=== PATIENT | female | born 1960 | race Caucasian/White ===

== ENCOUNTER 2019-04-22 17:52 | Emergency (ER) | payer OTHER, SELFPAY ==
--- NOTE | ~2019-04-22 | XR_ITS ---
[XR ribs LT 2V ] INDICATION: Left rib pain TECHNIQUE: Frontal projection of the upper left ribs, frontal projection of the lower left ribs, obli que projection of all the left ribs, frontal inspiratory chest x-ray for interpretation. FINDINGS: There are no displaced rib fractures identified. There are no soft tissue abnormality see n. The lungs are clear. IMPRESSION: 1:No displaced rib fractures. Reviewed, dictated and finalized at location A.
[2019-04-22 17:55] VITALS: BP 150/81; PULSE 108; RESP 16; TEMP 37.6; O2SAT 96
--- NOTE | 2019-04-22 18:29 | ED.GENADULT ---
HPI - General Adult General Chief complaint: Unspecified Stated complaint: rib pain- pos flu A Time Seen by Provider: 04/22/19 18:08 Source: patient Mode of arrival: ambulatory Limitations: no limitations History of Present Illness HPI narrative: Patient is a 58-year-old female who presents to emergency department for evaluation of left anterior rib pain patient was coughing when she developed the pain which is a sharp stabbing pain in the anterior lateral ribs patient was diagnosed with influenza today sent home on prednisone and returns noting sharp stabbing pain after coughin. Patient notes rhinorrhea congestion fever chills body aches since yesterday g Related Data Allergies Allergy/AdvReac Type Severity Reaction Status Date / Time Sulfa (Sulfonamide AdvReac Mild Verified 02/10/13 18:07 Antibiotics) PROXICAM Allergy Mild Uncoded 05/18/10 19:44 Review of Systems Review of Systems: All systems reviewed & are unremarkable except as noted in HPI and below Exam Narrative: Exam Narrative: GENERAL: Well-appearing, well-nourished, and in no acute distress. HEAD: Normocephalic, atraumatic. EYES: PERRLA and EOMI. ENT: Nares clear, no rhinorrhea or epistaxis. Mucous membranes moist. CHEST: Clear to auscultation. No respiratory distress. No wheezes rales or rhonchi HEART: Regular rate and rhythm. No murmur heard. EXTREMITIES: Normal range of motion. No edema. SKIN: Warm, dry, no rash. NEURO: No focal deficits. Alert and oriented x3. Cranial nerves II through XII grossly intact PSYCH: Normal mood and affect. Course Course Emergency Course: Patient in the room aware of case findings treatment plan and diagnosis agreeing to follow-up as directed or to return if symptoms worsen or concerns Vital Signs Vital signs: Vital Signs Temperature 99.6 F 04/22/19 17:55 Pulse Rate 108 H 04/22/19 17:55 Respiratory Rate 16 04/22/19 17:55 Blood Pressure 150/81 H 04/22/19 17:55 Pulse Oximetry 96 04/22/19 17:55 Temperature 99.6 F 04/22/19 17:55 Pulse Rate 108 H 04/22/19 17:55 Respiratory Rate 16 04/22/19 17:55 Blood Pressure 150/81 H 04/22/19 17:55 Pulse Oximetry 96 04/22/19 17:55 Medical Decision Making MDM Narrative Medical decision making narrative: Patient in the room aware of case findings treatment plan and diagnosis agreeing to follow-up as directed or to return if symptoms worsen or concerns Vital Signs Vital Signs: Vital Signs Temperature 99.6 F 04/22/19 17:55 Pulse Rate 108 H 04/22/19 17:55 Respiratory Rate 16 04/22/19 17:55 Blood Pressure 150/81 H 04/22/19 17:55 Pulse Oximetry 96 04/22/19 17:55 Temperature 99.6 F 04/22/19 17:55 Pulse Rate 108 H 04/22/19 17:55 Respiratory Rate 16 04/22/19 17:55 Blood Pressure 150/81 H 04/22/19 17:55 Pulse Oximetry 96 04/22/19 17:55 Imaging Data Radiologist's impression: ITS Impressions Ribs X-Ray 04/22/19 18:16 IMPRESSION: 1:No displaced rib fractures. Discharge Plan Discharge Clinical Impression: Strain of chest wall, Influenza Patient Disposition: Home, Self-Care Condition: Stable Instructions: Antibiotic Form, Influenza (ED) Additional Instructions: Follow up with your primary care provider within 5-7 days. Go to ER for shortness of breath, difficulty breathing, chest pain, fever/chills, weakness, nauseau/vomitting, etc. or any other concerns. Stay well-hydrated Take any prescribed medications as directed. Follow patient education sheets If you do not have a drug allergy to tylenol or motrin and can tolerate it then take tylenol or motrin as needed for discomfort/pain. Prescriptions: New oseltamivir [Tamiflu] 75 mg capsule 75 mg PO Q12H 5 Days Qty: 10 RF: 0 montelukast [Singulair] 10 mg tablet 10 mg PO DAILY Qty: 10 RF: 0 ibuprofen [IBU] 600 mg tablet 600 mg PO QID PRN (Reason: fever or pain) Qty: 7 RF: 0 Follow-up/Referrals: Mary,Penny
[2019-04-22] MEDS: KETOROLAC (*BKC) 60 MG/2 ML VIAL 30 MG IM (18:37)
== END 2019-04-22 18:52 | disposition home or self-care (01) ==
PROVIDERS: Emergency Provider Emergency Medicine; PCP Internal Medicine
DX: S29.011A Strain of muscle and tendon of front wall of thorax, initial encounter (principal); J11.1 Influenza due to unidentified influenza virus with other respiratory manifestations; X50.9XXA Other and unspecified overexertion or strenuous movements or postures, initial encounter
CPT/HCPCS: 71100; 96372; 99283; A9270; J1885

== ENCOUNTER 2020-02-16 02:49 | Emergency (ER) | payer OTHER, SELFPAY ==
--- NOTE | ~2020-02-16 | XR_ITS ---
EXAMINATION: XR chest 2V 02/16/2020 03:29 INDICATION: Cough PROCEDURE: PA and lateral views of the chest COMPARISON: No prior studies for comparison. FINDINGS: The lungs are clear. The cardiomediastinal silhouette is within normal limits. There are no pleural effusions. There is no pneumothorax suspected. IMPRESSION: 1: NO ACUTE CARDIOPULMONARY DISEASE. Reviewed, dictated and finalized at location A. [employer] DIRECT[employer]
[2020-02-16 03:00] VITALS: BP 169/80; PULSE 99; RESP 18; TEMP 36.6; O2SAT 98
--- NOTE | 2020-02-16 03:12 | ED.URI ---
HPI - URI/Sore Throat General Chief Complaint: Upper Respiratory Infection Stated Complaint: cough, vomiting, sore throat, sinus drainage Time Seen by Provider: 02/16/20 03:12 Source: patient Mode of arrival: ambulatory Limitations: no limitations History of Present Illness HPI Narrative: Patient 59-year-old female complaining of cough, productive of clear yellowish sputum, nasal congestion, nausea, vomiting and sore throat that started 2 days ago. Patient denies any chest pain, shortness of breath, diarrhea, fever or chills. Related Data Allergies Allergy/AdvReac Type Severity Reaction Status Date / Time Sulfa (Sulfonamide AdvReac Mild Verified 02/10/13 18:07 Antibiotics) PROXICAM Allergy Mild Uncoded 05/18/10 19:44 Review of Systems Review of Systems: All systems reviewed & are unremarkable except as noted in HPI and below Constitutional: Constitutional: Denies body ache(s), Denies chills, Denies excessive sweating, Denies fatigue, Denies fever(s), Denies headache(s), Denies lethargy, Denies malaise, Denies weakness and Denies weight loss Eyes: Eyes: Denies blurry vision, Denies change in vision and Denies loss of vision ENT: Denies dizziness, Denies ear discharge, Denies headache(s), Denies lip swelling, Denies epistaxis, Denies neck pain, Denies throat swelling and Denies tongue swelling Cardiovascular: Cardiovascular: Denies chest pain, Denies chest pain at rest, Denies chest pain with activity, Denies diaphoresis, Denies rapid heart rate, Denies edema, Denies irregular heart rhythm, Denies lightheadedness, Denies palpitations, Denies dyspnea and Denies dyspnea on exertion Respiratory: Respiratory: Denies chest congestion, Denies hemoptysis, Denies dyspnea and Denies dyspnea on exertion Gastrointestinal: Gastrointestinal: Denies abdominal pain, Denies melena, Denies hematochezia, Denies diarrhea, Denies nausea, Denies vomiting and Denies hematemesis Musculoskeletal: Musculoskeletal: Denies abnormal gait, Denies deformity, Denies joint swelling, Denies limited range of motion, Denies neck pain and Denies numbness Neurologic: Denies Abnormal speech present, Denies abnormal gait, Denies confusion, Denies dizziness, Denies headache(s), Denies focal weakness, Denies loss of vision, Denies numbness, Denies Other visual disturbances, Denies Sensory deficit (Neuro) and Denies weakness Psychiatric: Psychiatric: Denies confusion, Denies depression, Denies auditory hallucinations, Denies homicidal ideation and Denies suicidal ideation Endocrine: Endocrine: Denies cold intolerance, Denies excessive sweating, Denies fatigue, Denies heat intolerance and Denies palpitations Hematologic/Lymphatic: Hematologic/Lymphatic: Denies easy bleeding and Denies easy bruising Allergic/Immunologic: Allergic/Immunologic: Denies lip swelling, Denies throat swelling and Denies tongue swelling [facility] Social History Social History Gender identity (if verbalized by the patient): Female Exam Const: General: cooperative, healthy appearing, comfortable, no acute distress, well developed, alert and awake; No confusion Orientation/consciousness: oriented to person, oriented to place, oriented to time, patient oriented x3 and No confusion Limitations: no limitations HENMT: Head: normal to inspection, normocephalic and atraumatic Ears: hearing grossly normal bilaterally, TM normal on the right and TM normal on the left General nose exam: Normal external nose present, Normal nares present and No nasal discharge present Face and sinus: normal facial exam Mouth: Yes Normal oral and palatal mucosa present, Yes lip normal, Yes tongue normal and Yes oropharynx normal Throat: posterior oropharynx normal, tonsils normal and uvula midline Eyes: General: appearance normal, both eyes and all related structures Pupils: Equal, round and reactive pupils present EOM: EOMs intact bilaterally Neck: Neck: new
[2020-02-16 04:00] VITALS: BP 146/95; PULSE 94; RESP 20; TEMP 36.6; O2SAT 97
== END 2020-02-16 04:01 | disposition home or self-care (01) ==
PROVIDERS: Emergency Provider Emergency Medicine
DX: J06.9 Acute upper respiratory infection, unspecified (principal)
CPT/HCPCS: 71046; 99283

== ENCOUNTER 2023-11-26 07:05 | Outpatient (CLI) | payer OTHER, SELFPAY ==
--- NOTE | ~2023-11-26 | XR_ITS ---
XR foot LT min 3V Ordering provider: Carito Huertas History: . Infection following a procedure,superficial incisi . Comparison: None. FINDINGS: BONES: No acute fracture or dislocation. Calcaneal spur. Small bony fragment seen near to the second metatarsophalangeal joint. Clinical corre lation for history of injury is advised. Small lucency seen at the base of the proximal phalanx of the big toe. Follow-up advised. JOINT SPACES: Narrowing of the proximal and distal interphalangeal joints. No tarsal coalition. SOFT TISSUES: Soft tissue swelling at the base of the toe. IMPRESSION: Bony fragment near to the second metatarsophalangeal joint. Small lucency at the base of the proximal phalanx of the big toe. Follow-up advised. Soft tissue swelling in the base of the big toe. Reviewed, dictated and finalized at location A. IMPRESSION: Bony fragment near to the second metatarsophalangeal joint. Small lucency at the base of the proximal phalanx of the big toe. Follow-up adv ised. Soft tissue swelling in the base of the big toe.
== END 2023-11-26 07:06 | disposition home or self-care (01) ==
DX: T81.41XA Infection following a procedure, superficial incisional surgical site, initial encounter (principal)
CPT/HCPCS: 73630